=== PATIENT | female | born 2005 | race Caucasian/White ===

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

== ENCOUNTER 2023-09-08 11:51 | Emergency (ER) | payer BC ==
[~2023-09-08] VITALS: Ht 172 cm; Wt 110.0 kg
[~2023-09-08 11:51] MED LIST changes: +ACHD5005 PO
--- NOTE | 2023-09-08 11:58 | ED Psychosocial ---
General Stated Complaint: SUICIDAL IDEATION Source: patient History of Present Illness Date Seen by Provider: Sep 08, 2023 Time Seen by Provider: 11:52 Initial Comments 18-year-old female presenting with complaints of suicidal ideation. She states she has had suicidal ideation for at least the last several days. She has been drinking alcohol on a daily basis recently. She states her last drink was around 130 this morning. When she woke up this morning there was a pair of open scissors on the couch. She did not have any cuts on her arms or body. Did not remember having the scissors out. She was at a friend's house yesterday and there was a gun out and she thought about grabbing it to shoot her self. She has also thought about trying to cut her throat. She denies having any establish mental health providers. She denies other chronic medical problems. She does not take any prescription medicines on a daily basis. She denies any drug use or attempted self-harm currently, other than drinking alcohol in the last few days. She does use a Vape. Timing/Duration: getting worse Severity: moderate Associated Symptoms: suicidal ideation Allergies and Home Medications Allergies Coded Allergies: No Known Drug Allergies (Unverified , 04/28/19) Patient Home Medication List Home Medication List Reviewed: Yes Amoxicillin (Amoxicillin) 250 Mg/5 Ml Susp.recon, 1 TSP PO BID, (Reported) Entered as Reported by: RAGHU MILLIGAN on 07/06/13 102 Hydrocodone Bit/Acetaminophen (Hydrocodone-Apap 7.5-500 Mg/15) 120 Ml Solution, 5-10 ML PO Q 4 - 6 HRS PRN, (Reported) Entered as Reported by: RAGHU MILLIGAN on 07/06/13 102 Hydrocodone Bit/Acetaminophen (Lortab 5 Mg Tablet) 1 Tab Tab, 1 EACH PO Q4-6HR PRN for PAIN-MODERATE Prescribed by: ROSANGELA BRIZUELA on 04/28/19 193 [dexamethasone 4/2.5] , 2 TSP PO DAILY, (Reported) Entered as Reported by: RAGHU MILLIGAN on 07/06/13 1021 [dexamethasone] , 4, (Reported) Entered as Reported by: RAGHU MILLIGAN on 07/06/13 1021 [tetracaine lollipops] , 0.5-1 % PO PRN, (Reported) Entered as Reported by: RAGHU MILLIGAN on 07/06/13 1021 Review of Systems Constitutional: No chills, No fever EENTM: no symptoms reported Respiratory: no symptoms reported Cardiovascular: no symptoms reported Gastrointestinal: no symptoms reported Genitourinary: no symptoms reported : No LMP: Aug 10, 2023 Control/STD Prophylaxis: None Musculoskeletal: no symptoms reported Skin: no symptoms reported Psychiatric/Neurological: Depressed, Emotional Problems Past Wnefsxv-Liefrd-Bijvux Hx Patient Social History Tobacco Use?: No Use of E-Cig and/or Vaping dev: Yes Substance use?: No Alcohol Use?: Yes Alcohol type: Beer, Hard Liquor Seasonal Allergies Seasonal Allergies: No Past Medical History Surgeries: Yes (thigh-cyst removal, Left arm) Adenoidectomy, Orthopedic, Tonsillectomy Respiratory: No Cardiac: No Neurological: No Genitourinary: No Gastrointestinal: No Musculoskeletal: No Endocrine: No HEENT: No Cancer: No Psychosocial: No 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 oz. 83.797339kl; 36.00 BMI Method:Stated General Appearance: WD/WN, no apparent distress HEENT: PERRL/EOMI, pharynx normal Neck: non-tender, full range of motion, supple, normal inspection Respiratory: chest non-tender, lungs clear, normal breath sounds, no respiratory distress, no accessory muscle use Cardiovascular: normal peripheral pulses, regular rate, rhythm Gastrointestinal: normal bowel sounds, non tender, soft, no pulsatile mass Extremities: normal range of motion, non-tender, normal capillary refill Neurologic/Psychiatric: legal specialist II-XII nml as tested, alert, oriented x 3, depr essed affect Appearance/Memory: appropriate appearance, neat Behavior/Eye Contact: cooperative, good eye contact, normal speech Thoughts/Hallucinations: normal thought pattern, no apparent hallucination Skin: normal color, warm/dry BARS Assessment: 4-Calm/No Agitation Plan/Intervention Placed in secure room and under continuous observation with checks every 15 minutes. Obtain labs, urine and ECG to medically screen patient for mental health evaluation. Progress/Results/Core Measures Results/Orders Lab Results Laboratory Tests Test 09/08/23 11:55 09/08/23 12:00 Range/Units Urine Color YELLOW Urine Clarity SL CLOUDY Urine pH 5.5 5-9 Urine Specific [place] >=1.030 1.016-1.022 Urine Protein NEGATIVE NEGATIVE Urine Glucose (UA) NEGATIVE NEGATIVE Urine Ketones NEGATIVE NEGATIVE Urine Nitrite NEGATIVE NEGATIVE Urine Bilirubin NEGATIVE NEGATIVE Urine Urobilinogen 0.2 < = 1.0 MG/DL Urine Leukocyte Esterase TRACE H NEGATIVE Urine RBC (Auto) NEGATIVE NEGATIVE Urine RBC NONE /HPF Urine WBC 10-25 H /HPF Urine Squamous Epithelial Cells 5-10 /HPF Urine Crystals NONE /LPF Urine Bacteria MODERATE H /HPF Urine Casts NONE /LPF Urine Mucus MODERATE H /LPF Urine Culture Indicated YES Urine Opiates Screen NEGATIVE NEGATIVE Urine Oxycodone Screen NEGATIVE NEGATIVE Urine Methadone Screen NEGATIVE NEGATIVE Urine Barbiturates Screen NEGATIVE NEGATIVE Ur Tricyclic Antidepressants Screen NEGATIVE NEGATIVE Urine Phencyclidine Screen NEGATIVE NEGATIVE Urine Amphetamines Screen NEGATIVE NEGATIVE Urine Methamphetamines Screen NEGATIVE NEGATIVE Urine Benzodiazepines Screen NEGATIVE NEGATIVE Urine Cocaine Screen NEGATIVE NEGATIVE Urine Cannabinoids Screen NEGATIVE NEGATIVE White Blood Count 8.0 4.3-11.0 10^3/uL Red Blood Count 4.43 3.80-5.11 10^6/uL Hemoglobin 12.9 11.5-16.0 g/dL Hematocrit 40 35-52 % Mean Corpuscular Volume 90 80-99 fL Mean Corpuscular Hemoglobin 29 25-34 pg Mean Corpuscular Hemoglobin Concent 32 32-36 g/dL Red Cell Distribution Width 12.4 10.0-14.5 % Platelet Count 254 130-400 10^3/uL Mean Platelet Volume 10.7 9.0-12.2 fL Immature Granulocyte % (Auto) 0 % Neutrophils (%) (Auto) 60 42-75 % Lymphocytes (%) (Auto) 27 12-44 % Monocytes (%) (Auto) 10 0-12 % Eosinophils (%) (Auto) 3 0-10 % Basophils (%) (Auto) 1 0-10 % Neutrophils # (Auto) 4.7 1.8-7.8 10^3/uL Lymphocytes # (Auto) 2.1 1.0-4.0 10^3/uL Monocytes # (Auto) 0.8 0.0-1.0 10^3/uL Eosinophils # (Auto) 0.3 0.0-0.3 10^3/uL Basophils # (Auto) 0.0 0.0-0.1 10^3/uL Immature Granulocyte # (Auto) 0.0 0.0-0.1 10^3/uL Percent Immature Platelet Fraction 4.5 0.0-7.6 % Sodium Level 138 135-145 MMOL/L Potassium Level 3.5 L 3.6-5.0 MMOL/L Chloride Level 105 98-107 MMOL/L Carbon Dioxide Level 24 21-32 MMOL/L Anion Gap 9 5-14 MMOL/L Blood Urea Nitrogen 12 7-18 MG/DL Creatinine 0.78 0.60-1.30 MG/DL Estimat Glomerular Filtration Rate 111 BUN/Creatinine Ratio 15 Glucose Level 98 70-105 MG/DL Calcium Level 8.9 8.5-10.1 MG/DL Corrected Calcium 8.8 8.5-10.1 MG/DL Total Bilirubin 0.3 0.1-1.0 MG/DL Aspartate Amino Transf (AST/SGOT) 18 5-34 U/L Alanine Aminotransferase (ALT/SGPT) 19 0-55 U/L Alkaline Phosphatase 75 40-136 U/L Total Protein 7.0 6.4-8.2 GM/DL Albumin 4.1 3.2-4.5 GM/DL Salicylates Level < 0.3 L 5.0-20.0 MG/DL Acetaminophen Level < 10 L 10-30 UG/ML Serum Alcohol < 10 <10 MG/DL SARS-CoV-2 RNA (RT-PCR) Not Detected Not Detecte My Orders Orders - LENNY FRASER MD Ua Culture If Indicated (09/08/23 11:56) Cbc And Automated Diff (09/08/23 11:56) Comprehensive Metabolic Panel (09/08/23 11:56) Alcohol (09/08/23 11:56) Drug Screen Stat (Urine) (09/08/23 11:56) Acetaminophen (09/08/23 11:56) Salicylate (09/08/23 11:56) Ekg Tracing (09/08/23 11:56) Bh Status Checks/Observation O Q15M (09/08/23 11:56) Urine Bedside (09/08/23 11:56) Covid 19 Inhouse Test (09/08/23 11:56) Urine Culture (09/08/23 11:55) Vital Signs/I&O 09/08/23 12:54 Temp 36.3 Pulse 102 Resp 16 B/P (MAP) 159/97 (117) Pulse Ox 99 O2 Delivery Room Air Progress Progress Note #1: Progress Note Differential diagnosis includes depression, anxiety, suicidal ideation, thoughts of self-harm. Please send secure environment and obtain labs for complete blood count, co mprehensive metabolic profile, urinalysis, urine drug screen, alcohol level, salicylate level, acetaminophen level, bedside test. Electrocardiogram to look for arrhythmia or QT prolongation. Once her medical tests are back and she is fully medically cleared we will contact [facility] or [facility], depending on the time of day, about mental health screening. Progress Note #2: Time: 12:25 Progress Note Complete blood count did not show any acute significant abnormality. She had a normal white blood cell count of 8 and hemoglobin was low normal at 12.9. Platelets normal at 254. 1239 comprehensive metabolic profile did not show any acute electrolyte abnormalities. Alcohol level was less than 10, salicylate level was less than 0.3 and acetaminophen level was less than 10. Urine drug screen was negative for all substances tested. 1242 analysis was concentrated with specific gravity greater than 1.030. She had trace leukocyte esterase with 10-25 white blood cells and moderate bacteria so a culture was reflexed. She did not have any nitrites and patient denied any urinary tract symptoms. Will defer an antibiotic until culture results are back. Patient is medically clear and stable for mental health evaluation and will reach out to [facility] to get that process initiated. 1249 COVID swab was negative. Progress Note #3: Time: 14:40 Progress Note [facility] screened patient and they agreed on a safety plan for the patient. Discharge and advised to follow safety plan as agreed upon with [facility] Initial ECG Impression Date: Sep 08, 2023 Initial ECG Impression Time: 12:09 Initial ECG Rate: 90 Initial ECG Rhythm: Normal Sinus Initial ECG Comparisson: No Previous ECG Available Comment On my personal interpretation and review her electrocardiogram shows a sinus rhythm with a heart rate of 90 bpm. There is no acute ST elevation. HI inter anne 154 ms. QT interval 362 ms with a QTc interval 409 ms. There is no prior tracing available for comparison. Departure Impression Primary Impression: Suicidal ideation Disposition: 01 HOME, SELF-CARE Condition: Stable Departure-Patient Inst. Decision time for Depature: 14:49 Referrals: SELFJANIA MD (PCP) Primary Care Physician Patient Instructions: Suicide Prevention Add. Discharge Instructions: Follow safety plan as agreed upon with Mental health LENNY FRASER MD Sep 08, 2023 11:58
[2023-09-08 12:13] LABS: BASOPHILS % (AUTO) 1 % (0-10); EOSINOPHILS # (AUTO) 0.3 10^3/uL (0.0-0.3); EOSINOPHILS % (AUTO) 3 % (0-10); HEMATOCRIT 40 % (35-52); HEMOGLOBIN 12.9 g/dL (11.5-16.0); LYMPHOCYTES # (AUTO) 2.1 10^3/uL (1.0-4.0); LYMPHOCYTES % (AUTO) 27 % (12-44); MEAN CORPUSCULAR HEMOGLOBIN 29 pg (25-34); MEAN CORPUSCULAR HGB CONC 32 g/dL (32-36); MEAN CORPUSCULAR VOLUME 90 fL (80-99); MEAN PLATELET VOLUME 10.7 fL (9.0-12.2); MONOCYTES # (AUTO) 0.8 10^3/uL (0.0-1.0); MONOCYTES % (AUTO) 10 % (0-12); NEUTROPHILS # (AUTO) 4.7 10^3/uL (1.8-7.8); NEUTROPHILS % (AUTO) 60 % (42-75); PLATELET COUNT 254 10^3/uL (130-400)
[2023-09-08 12:22] LABS: BILIRUBIN,URINE NEGATIVE (NEGATIVE); CLARITY,URINE SL CLOUDY; COLOR,URINE YELLOW; GLUCOSE, URINE (UA) NEGATIVE (NEGATIVE); KETONES,URINE NEGATIVE (NEGATIVE); NITRITE,URINE NEGATIVE (NEGATIVE); PH,URINE 5.5 (5-9); PROTEIN,URINE NEGATIVE (NEGATIVE)
[2023-09-08 12:36] LABS: CARBON DIOXIDE 24 MMOL/L (21-32); CHLORIDE 105 MMOL/L (98-107); POTASSIUM 3.5 MMOL/L (3.6-5.0); SODIUM 138 MMOL/L (135-145)
[2023-09-08 12:37] LABS: ACETAMINOPHEN < 10 UG/ML (10-30); ALANINE AMINOTRANSFERASE 19 U/L (0-55); ALBUMIN 4.1 GM/DL (3.2-4.5); ALKALINE PHOSPHATASE 75 U/L (40-136); BILIRUBIN,TOTAL 0.3 MG/DL (0.1-1.0); BUN/CREATININE RATIO 15; CALCIUM 8.9 MG/DL (8.5-10.1); CREATININE SERUM 0.78 MG/DL (0.60-1.30); GFR ESTIMATED 111; GLUCOSE 98 MG/DL (70-105); SALICYLATE < 0.3 MG/DL (5.0-20.0)
[2023-09-08 12:39] LABS: AMPHETAMINE SCREEN, URINE NEGATIVE (NEGATIVE); BARBITURATE SCREEN URINE NEGATIVE (NEGATIVE); CANNABINOID SCREEN, URINE NEGATIVE (NEGATIVE); COCAINE SCREEN URINE NEGATIVE (NEGATIVE); METHADONE STAT NEGATIVE (NEGATIVE); OPIATE SCREEN URINE NEGATIVE (NEGATIVE); OXYCODONE STAT NEGATIVE (NEGATIVE); TRICYCLIC ANTIDEPRESSANTS SCRE NEGATIVE (NEGATIVE)
[2023-09-08 12:40] LABS: BACTERIA,URINE MODERATE /HPF; LEUKOCYTE ESTERASE ,URINE TRACE (NEGATIVE)
[2023-09-08 12:54] VITALS: BP 159/97
== END 2023-09-08 14:58 | disposition home or self-care (01) ==
LOC: EDUNIT# 11:51 → ER FS 11:53
DX: R45.851 Suicidal ideations (principal); F17.290 Nicotine dependence, other tobacco product, uncomplicated
CPT/HCPCS: 36415; 80053; 80306; 81000; 84703; 85025; 87088; 87636; 93005; 99284; G0480 ×3; 80320; 80329